=== PATIENT | male | born 1970 | race Caucasian/White ===

== ENCOUNTER 2017-02-22 21:13 | Emergency (ER) | payer OTHER ==
[2017-02-22] MEDS ORDERED: ASPIRIN 81 MG TABLET, CHEWABLE PO ONE (23:35)
[2017-02-22 23:47] LABS: ABSOLUTE LYMPHOCYTES (AUTO) 1.7 10^3/uL (0.5-4.7); ABSOLUTE MONOCYTES (AUTO) 0.8 10^3/uL (0.1-1.4); ABSOLUTE NEUT (AUTO) 10.3 10^3/uL (1.7-8.2); BASOPHILS % (AUTO) 0.3 % (0-2); EOSINOPHILS % (AUTO) 0.1 % (0-6); HEMATOCRIT 43.1 % (37.9-51.0); HEMOGLOBIN 14.6 g/dL (13.5-17.0); HGB HCT DIFFERENCE 0.7; LYMPHOCYTES % (AUTO) 13.4 % (13-45); MEAN CORPUSCULAR HEMOGLOBIN 30.6 pg (27.0-33.4); MEAN CORPUSCULAR HGB CONC 33.8 g/dL (32.0-36.0); MEAN CORPUSCULAR VOLUME 91 fl (80-97); MONOCYTES % (AUTO) 6.2 % (3-13); RED BLOOD COUNT 4.76 10^6/uL (4.35-5.55); RED CELL DISTRIBUTION WIDTH 12.7 % (11.5-14.0); WHITE BLOOD COUNT 12.9 10^3/uL (4.0-10.5)
[2017-02-22 23:49] LABS: ALANINE AMINOTRANSFERASE 43 U/L (21-72); ALBUMIN 4.9 g/dL (3.5-5.0); ALKALINE PHOSPHATASE 72 U/L (38-126); ANION GAP 15 (5-19); ASPARTATE AMINO TRANSFERASE 31 U/L (17-59); BILIRUBIN,DIRECT 0.4 mg/dL (0.0-0.4); BLOOD UREA NITROGEN 23 mg/dL (7-20); CALCIUM 9.7 mg/dL (8.4-10.2); CARBON DIOXIDE 22 mmol/L (22-30); CHLORIDE 103 mmol/L (98-107); CREATINE KINASE 369 U/L (55-170); CREATININE RESULT 1.25 mg/dL (0.52-1.25); GLUCOSE 116 mg/dL (75-110); POTASSIUM 4.2 mmol/L (3.6-5.0); SODIUM 139.8 mmol/L (137-145); TOTAL PROTEIN 7.9 g/dL (6.3-8.2)
[2017-02-23] LABS: CREATINE KINASE MB 3.39 ng/mL (<4.55)
[2017-02-23 00:02] LABS: TROPONIN I < 0.012 ng/mL
--- NOTE | 2017-02-23 00:55 | RADIOLOGY REPORT (SQ) ---
EXAM DESCRIPTION: CHEST SINGLE VIEW COMPLETED DATE/TIME: 02/23/2017 12:45 am REASON FOR STUDY: CP COMPARISON: None. EXAM PARAMETERS: NUMBER OF VIEWS: One view. TECHNIQUE: Single frontal radiographic view of the chest acquired. RADIATION DOSE: NA LIMITATIONS: None. FINDINGS: LUNGS AND PLEURA: No opacities, masses or pneumothorax. No pleural effusion. MEDIASTINUM AND HILAR STRUCTURES: No masses. Contour normal. HEART AND VASCULAR STRUCTURES: Heart normal in size. Normal vasculature. BONES: No acute findings. HARDWARE: None in the chest. OTHER: No other significant finding. IMPRESSION: NO ACUTE RADIOGRAPHIC FINDING IN THE CHEST. TECHNICAL DOCUMENTATION: JOB ID: [id number]
[2017-02-23] MEDS ORDERED: KETOROLAC TROMETHAMINE INJ/PF 30 MG/1 ML SDV IV ONE (01:31)
[2017-02-23] MEDS ORDERED: PROCHLORPERAZINE EDISYLATE INJ 10 MG/2 ML VIAL IV ONE (01:31)
[2017-02-23] MEDS ORDERED: NORMAL SALINE 1000 ML 1,000 ML IV ONE (01:32)
[2017-02-23] MEDS ORDERED: DIPHENHYDRAMINE HCL 50 MG/ML VIAL IV ONE (01:32)
--- NOTE | 2017-02-23 01:46 | ER Document Report ---
ED General - General Chief Complaint: Chest Pain Stated Complaint: HEART PALPITATIONS Time Seen by Provider: 02/23/17 00:58 Mode of Arrival: Ambulatory Information source: Patient Notes: 36-year-old male presents to ED for complaint of chest pain palpitations pain down his left arm after he was out working in the sun all day. States he has had migraine and took his migraine medicine that did not help. States he has been nauseated all day. 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 Has a past medical history of migraines and cholesterol. - HPI Onset: This evening Onset/Duration: Gradual Quality of pain: Sharp Severity: Severe Associated symptoms: Body/muscle aches, Chest pain, Headache, Nausea Exacerbated by: Other - palpation, lights Relieved by: Denies Similar symptoms previously: No Recently seen / treated by doctor: No - Related Data Allergies/Adverse Reactions: No Known Allergies Allergy (Unverified 02/22/17 21:50) Past Medical History - General Information source: Patient - Social History Smoking Status: Current Every Day Smoker Cigarette use (# per day): Yes - 1-2 cig Chew tobacco use (# tins/day): No Smoking Education Provided: Yes - less than 1 min Frequency of alcohol use: None Drug Abuse: None Occupation: office electrician Lives with: Family Family History: CAD Patient has suicidal ideation: No Patient has homicidal ideation: No - Past Medical History Cardiac Medical History: Reports: Hx Hypercholesterolemia Pulmonary Medical History: Reports: None EENT Medical History: Reports: None Neurological Medical History: Reports: Hx Migraine Endocrine Medical History: Reports: None Renal/ Medical History: Reports: None Malignancy Medical History: Reports None GI Medical History: Reports: None Musculoskeltal Medical History: Reports None Skin Medical History: Reports None Psychiatric Medical History: Reports: None Traumatic Medical History: Reports: None Infectious Medical History: Reports: None Past Surgical History: Reports: Hx Genitourinary Surgery - Vasectomy - Immunizations Immunizations up to date: Yes Hx Diphtheria, Pertussis, Tetanus Vaccination: Yes Review of Systems - Review of Systems Constitutional: No symptoms reported EENT: No symptoms reported Cardiovascular: Chest pain, Palpitations, Other - Left arm pain Respiratory: No symptoms reported Gastrointestinal: Nausea Genitourinary: No symptoms reported Male Genitourinary: No symptoms reported Musculoskeletal: No symptoms reported Skin: No symptoms reported Hematologic/Lymphatic: No symptoms reported Neurological/Psychological: Headaches -: Yes All other systems reviewed and negative Physical Exam - Vital signs Vitals: Temp Pulse Resp BP Pulse Ox 98.2 F 95 20 130/77 H 97 02/22/17 21:50 02/22/17 21:50 02/22/17 21:50 02/22/17 21:50 02/22/17 21:50 Interpretation: Normal - General General appearance: Appears well, Alert - HEENT Head: Normocephalic, Atraumatic Eyes: Normal Pupils: PERRL - Respiratory Respiratory status: No respiratory distress Chest status: Nontender Breath sounds: Normal Chest palpation: Normal - Cardiovascular Rhythm: Regular Heart sounds: Normal auscultation Murmur: No - Abdominal Inspection: Normal Distension: No distension Bowel sounds: Normal Tenderness: Nontender Organomegaly: No organomegaly - Back Back: Normal, Nontender - Extremities General upper extremity: Normal inspection, Nontender, Normal color, Normal ROM , Normal temperature General lower extremity: Normal inspection, Nontender, Normal color, Normal ROM , Normal temperature, Normal weight bearing. No: Elaina's sign - Neurological Neuro grossly intact: Yes Cognition: Normal Orientation: AAOx4 Renuka Coma Scale Eye Opening: Spontaneous Hughson Coma Scale Verbal: Oriented Renuka Coma Scale Motor: Obeys Commands Renuka Coma Scale Total: 15 Speech: Normal Motor strength normal: LUE, RUE, LLE, RLE Sensory: Normal - Psychological Associated symptoms: Normal affect, Normal mood - Skin Skin Temperature: Warm Skin Moisture: Dry Skin Color: Normal Course - Re-evaluation Re-evalutation: 02/23/17 05:57 Was given Compazine Toradol and Benadryl for his headache with IV fluids. Patient had a adverse reaction and became very agitated and fidgety. Patient was treated with Ativan and states his back started hurting complained of pain in his lower back radiating down his leg. The headache and chest pain were cleared up with the Compazine and Benadryl. After all the labs came back as negative and his chest x-ray was clear patient was discharged home with no headaches to follow-up with his primary doctor. - Vital Signs Vital signs: Temp Pulse Resp BP Pulse Ox 97.9 F 87 12 127/80 H 94 02/23/17 04:48 02/23/17 04:48 02/23/17 04:48 02/23/17 04:48 02/23/17 04:48 - Laboratory Result Diagrams: 02/22/17 22:40 02/22/17 22:40 Laboratory results interpreted by me: 02/22/17 02/22/17 22:40 22:40 WBC 12.9 H Seg Neutrophils % 80.0 H Absolute Neutrophils 10.3 H BUN 23 H Glucose 116 H Creatine Kinase 369 H - EKG Interpretation by Me EKG shows normal: Sinus rhythm Rate: Normal Discharge - Discharge Clinical Impression: Chest wall pain Condition: Stable Disposition: HOME, SELF-CARE Additional Instructions: CHEST WALL PAIN: Your chest pain may be coming from the chest wall. This is often caused by straining the muscles or joints in the chest during physical activity, direct trauma, coughing, or vigorous vomiting. Persons with arthritis are especially prone to this type of pain, due to inflammation of the cartilage joints near the breast bone. Occasionally, no cause can be found. Rest from strenuous physical activity. This kind of chest pain is usually made worse by movement of the chest. Depending on the symptoms, we may prescribe medicine for pain, muscle relaxation, and antiinflammatory effects. If the pain is new, and seems to be due to muscle strain, cold packs can help. Otherwise, apply gentle warmth to the painful area for 15 minutes every hour or two. You should call contact the doctor immediately if things change. Further evaluation is needed if you develop a fever or cough, if the nature of the pain changes, or if you become short of breath. HEADACHE: The physician does not feel that the headache you are experiencing has a serious underlying cause. Most headaches are due to emotional stress, with resultant muscle tension (tension headache). Occasionally, headaches are secondary to changes in the blood vessels of the scalp (vascular headache and migraine headache). Sometimes, a headache is the first symptom of another developing illness, such as a viral infection. You have no evidence of stroke, bleeding, meningitis, or other serious cause of your headache. The treatment of headaches varies with the severity and cause of the pain. Not all headaches need pain shots. In fact, there is evidence that using narcotics for headaches may make them worse in the long run. The physician will determine the therapy that's in your best interest. If you develop a fever, if the headache is different from any you've previously experienced, or if the headache progressively worsens, then call your physician at once or go to the emergency room. USE OF DIPHENHYDRAMINE: Diphenhydramine (Benadryl) is an antihistamine and has been recommended to help treat your headache and to prevent side effects of other medications used to treat headaches. The medication can be repeated four times daily. Age Elixir (12.5 mg/tsp) 25 mg pill adult 1-2 tabs Antihistamines may cause drowsiness, especially with the first dose. Do not operate machinery or drive while under the effects of the medication. Do not combine the medication with alcohol, or with any other medication without talking to your doctor. INTRAVENOUS COMPAZINE FOR HEADACHE: You have received therapy for headaches, using intravenous Compazine. This treatment is dramatically successful in relieving the headache in about 50 percent of cases. When it works, it provides a rapid method of eliminating the headache without resorting to narcotics (and the problems associated with them). Most patients still feel fully alert after the Compazine, but others may be slightly drowsy. It's best not to drive or work with machinery for six to eight hours. Do not take alcohol or other medication unless you discuss it with the doctor. If you develop tightness and spasms in your muscles, especially the neck and tongue, you should return. This is a side effect which can be treated. TORADOL INJECTION: You have been given an injection of ketorolac tromethamine (Toradol). This is an excellent, safe drug for pain control. It also has potent antiinflammatory action. You should have significant pain relief within about one hour. Toradol is not addicting and is non-sedating. It does not interfere with driving or work. Call or return if you develop itching, hives, shortness of breath, or rash. Benzodiazepines You have been given a benzodiazepine medication. Examples of this type of medicine include Valium, Xanax, Librium, Ativan, and Halcion. Benzodiazepines have many uses. Medications of this type are used for insomnia, anxiety, muscle spasms, seizures, and drug and alcohol withdrawal. You may become very drowsy when you first take the medication. You should not drive or operate machinery while under its effects. Do not combine the medication with alcohol, or with any other medication without talking to your doctor. Do not take if without specific instruction from your drafting clerk. Some benzodiazepines may have harmful interactions with oral antifungal medicines such as ketoconazole, itraconazole, and nefazodone. If you are taking an antifungal medicine, discuss this with your doctor before taking benzodiazepines. FOLLOW-UP CARE: If you have been referred to a physician for follow-up care, call the physician s office for an appointment as you were instructed or within the next two days. If you experience worsening or a significant change in your symptoms, notify the physician immediately or return to the Emergency Department at any time for re-evaluation. Forms: Elevated Blood Pressure, Smoking Cessation Education, Parent Work Note, Return to Work Referrals: NGOZI WILD MD [Primary Care Provider] - Follow up as needed
[2017-02-23] MEDS ORDERED: LORAZEPAM INJ 2 MG/1 ML VIAL IV ONE (02:18)
[2017-02-23 03:23] LABS: APPEARANCE,URINE TURBID; BILIRUBIN,URINE NEGATIVE (NEGATIVE); GLUCOSE, URINE NEGATIVE (NEGATIVE); KETONES,URINE NEGATIVE (NEGATIVE); LEUKOCYTE ESTERASE,URINE NEGATIVE (NEGATIVE); NITRITE,URINE NEGATIVE (NEGATIVE); PROTEIN,URINE NEGATIVE (NEGATIVE); URINE SPECIFIC GRAVITY 1.026; UROBILINOGEN,URINE NEGATIVE mg/dL (<2.0)
[2017-02-23 04:50] VITALS: BP 127/80
--- NOTE | 2017-02-23 07:56 | EKG REPORT ---
SEVERITY:- NORMAL ECG - SINUS RHYTHM : Confirmed by: Leobardo Bunn MD 23-Feb-2017 07:56:07
== END 2017-02-23 04:16 | disposition home or self-care (01) ==
LOC: ER 21:13
DX: R07.89 Other chest pain (principal); R00.2 Palpitations; M79.602 Pain in left arm; R11.0 Nausea; F17.210 Nicotine dependence, cigarettes, uncomplicated
CPT/HCPCS: 93005; 99285; 96361; 96374; 96375; 36415; 82553; 82550; 85025; 80053; 81001; 84484; 71010; 93010; J1200; J1885; J2060; J0780; J7030